=== PATIENT | female | born 1980 | race Asian ===

== ENCOUNTER 2017-04-23 07:38 | Inpatient (IN) | payer BC ==
[~2017-04-23] VITALS: Ht 154.9 cm; Wt 63.6 kg
[2017-04-23] VITALS (52 sets, daily range): BP systolic 87–147; BP diastolic 48–113; PULSE 64–104; TEMP 97.9–98.8
[~2017-04-23 07:38] MED LIST: MOTRIN 600600 MG/TAB PO; PERCOCET 325 MG1 TA2 PO; PRENATAL1 TA1 PO; SENOKOT S 50 MG1 TAB PO
[2017-04-23 09:10] LABS: HEMOGLOBIN 12.4 g/dl (12.5-16.0); MEAN CELL VOLUME 97 fl (80.0-100.0); MEAN CORPUSCULAR HEMOGLOBIN 33 pg (27.0-31.0); MEAN CORPUSCULAR HGB CONC 34 g/dl (33.0-37.0); MEAN PLATELET VOLUME 10.5 fl (7.4-10.4); PLATELET COUNT 209 K/mm3 (130-400); RED BLOOD COUNT 3.77 M/mm3 (4.10-5.30); REDCELL DISTRIBUTION WIDTH-CV 13.7 % (11.5-14.5); WHITE BLOOD COUNT 8.7 K/mm3 (4.8-10.8)
[2017-04-23 09:12] LABS: ADD PATHOLOGY DIFF REVIEW NO; HEMATOCRIT 36.5 % (37.0-47.0)
[2017-04-23 09:40] LABS: BAND 7 % (0-10); NEUTROPHILS 67 % (42.0-75.2); PLATELET ESTIMATE NORMAL (NORMAL); TOTAL CELLS COUNTED 100
[2017-04-23] MEDS ORDERED: THYROLAR PO (15:49)
[2017-04-24 01:42] VITALS: BP 94/44; PULSE 88; TEMP 98.4
[2017-04-24 05:30] VITALS: BP 79/39; PULSE 82; TEMP 98.3
[2017-04-24 06:03] VITALS: BP 79/41; PULSE 78
[2017-04-24 07:00] VITALS: BP 81/41; PULSE 68; TEMP 97.2
[2017-04-24] MEDS ORDERED: PERCOCET 325 MG1 TA2 PO (08:26)
[2017-04-24] MEDS ORDERED: MOTRIN 800800 MG/TAB PO (08:26)
[2017-04-24 16:00] VITALS: BP 86/58; PULSE 76; TEMP 98.2
[2017-04-24 21:30] VITALS: BP 96/53; PULSE 79; TEMP 98.1
[2017-04-25 07:00] VITALS: BP 90/60; PULSE 74; TEMP 97.8
[2017-04-25] MEDS ORDERED: BREASTPUMP MC (11:02)
[2017-04-25 16:08] VITALS: BP 84/62; PULSE 78; TEMP 98.1
== END 2017-04-25 16:55 | disposition home or self-care (01) | DRG 775 ==
LOC: LDRO 07:38 → LDR 08:05 → OB 08:05
PROVIDERS: Obstetrics & Gynecology
PROC: 10E0XZZ Delivery of Products of Conception, External Approach (ICD-10-PCS; principal; 2017-04-23)
PROC: 0KQM0ZZ Repair Perineum Muscle, Open Approach (ICD-10-PCS; 2017-04-23)
DX: O69.81X0 Labor and delivery complicated by cord around neck, without compression, not applicable or unspecified (principal); O70.1 Second degree perineal laceration during delivery; O99.284 Endocrine, nutritional and metabolic diseases complicating childbirth; E03.9 Hypothyroidism, unspecified; Z3A.39 39 weeks gestation of pregnancy; Z37.0 Single live birth
CPT/HCPCS: J2405; J2590; J7120

== ENCOUNTER → 2020-07-20 | Outpatient (CLI) | payer BC ==
[~2020-07-20] MED LIST changes: +BREASTPUMP MC; +MOTRIN 800800 MG/TAB PO; +THYROLAR PO
== END ==
LOC: COL.RAD 12:15
DX: E04.9 Nontoxic goiter, unspecified (principal); E03.9 Hypothyroidism, unspecified